=== PATIENT | female | born 1950 | race Caucasian/White ===

== ENCOUNTER → 2016-07-02 | Outpatient (CLI) | payer BC ==
[2016-07-02 13:37] LABS: GLUCOSE 107 mg/dl (70-99)
[2016-07-02 13:51] LABS: CHOLESTEROL 252 mg/dl (0-200); CHOLESTEROL/HDL RATIO 4.8; HDL CHOLESTEROL 53 mg/dl; TRIGLYCERIDES 141 mg/dl (0-150); VERY LOW DENSITY LIPOPROT CALC 28 mg/dl
[2016-07-02 14:04] LABS: ESTIMATED AVERAGE GLUCOSE 126 mg/dl; HA1C FLAG Normal (Normal)
== END | disposition home or self-care (01) ==
LOC: C.LABSPEC 13:01
PROVIDERS: ATTEND Internal Medicine
DX: R73.9 Hyperglycemia, unspecified (principal); E78.5 Hyperlipidemia, unspecified; E03.9 Hypothyroidism, unspecified

== ENCOUNTER → 2016-07-15 | Outpatient (CLI) | payer BC ==
--- NOTE | 2016-07-15 13:45 | MAMMOGRAPHY REPORT ---
BILATERAL DIGITAL SCREENING MAMMOGRAM WITH CAD: 07/15/2016 CLINICAL HISTORY: Routine screening. Patient has no complaints. TECHNIQUE: Current study was also evaluated with a Computer Aided Detection (CAD) system. Bilatera l CC and MLO views were obtained. COMPARISON: Comparison is made to exams dated: 07/14/2015 mammogram, 07/11/2013 mammogram, 07/10/2012 mammogram, 07/05/2011 mammogram, and 07/09/2010 mammogram - [facility]. BREAST COMPOSITION: There are scattered areas of fibroglandular density in both breasts. FINDINGS: No suspicious masses, calcifications, or areas of architectural distortion are noted in e ither breast. There has been no significant interval change compared to prior exams. Bilateral jeremy gn-appearing calcifications are not significantly changed. Small benign-appearing masses in the lef t breast are stable compared to multiple prior exams including the 2011 and 2010 exams. IMPRESSION: ACR BI-RADS CATEGORY 2: BENIGN There is no mammographic evidence of malignancy. A 1 year screening mammogram is recommended. The p atient will receive written notification of the results. Approximately 10% of breast cancers are not detected with mammography. A negative mammographic repor t should not delay biopsy if a clinically suggestive mass is present. Giovanna Briceno M.D. ah/:07/15/2016 10:59:[address] Magistrate: Merna THOMASON(Edward)(M), [facility] letter sent: Normal 1/2 BI-RADS Code: ACR BI-RADS Category 2: Benign
== END | disposition home or self-care (01) ==
LOC: C.MAMM 08:55
PROVIDERS: ATTEND Obstetrics & Gynecology
DX: Z12.31 Encounter for screening mammogram for malignant neoplasm of breast (principal)

== ENCOUNTER → 2016-07-26 | Outpatient (CLI) | payer BC | END | disposition home or self-care (01) | LOC: C.LABSPEC 12:46 | PROVIDERS: ATTEND Internal Medicine | DX: Z12.11 Encounter for screening for malignant neoplasm of colon (principal) ==

== ENCOUNTER → 2016-09-02 | Outpatient (CLI) | payer BC ==
[2016-09-02 15:48] LABS: BASO % 0.4 %; BASO ABS # 0.05 K/uL (0-0.2); COMPLETE YES; EOS % 3.3 %; IG% 0.3 %; LYMPH % 22.4 %; LYMPH ABS # 2.61 K/uL (1.2-3.4); MEAN CELL VOLUME 93.7 fL (80-100); MEAN CORPUSCULAR HEMOGLOBIN 31.6 pg (25-34); MEAN CORPUSCULAR HGB CONC 33.7 g/dl (32-36); MEAN PLATELET VOLUME 9.6 fL (7.4-10.4); MONO % 7.8 %; NEUT % 65.8 %; PLATELET COUNT 280 K/uL (130-400); RED BLOOD COUNT 4.59 M/uL (4.2-5.4); WHITE BLOOD COUNT 11.67 K/uL (4.8-10.8)
[2016-09-02 15:56] LABS: ALT/SGPT 34 U/L (12-78); BLOOD UREA NITROGEN 13 mg/dl (7-18); BUN/CREATININE RATIO 12.8 (10-20); CALCIUM 9.1 mg/dl (8.5-10.1); CARBON DIOXIDE 29 mmol/L (21-32); CHLORIDE 103 mmol/L (98-107); GLUCOSE 99 mg/dl (70-99); POTASSIUM 3.5 mmol/L (3.5-5.1); SODIUM 141 mmol/L (136-145)
[2016-09-02 16:12] LABS: ALKALINE PHOSPHATASE 97 U/L (45-117); AST/SGOT 20 U/L (15-37)
[2016-09-07 21:38] LABS: ENDOMYSIAL IGA AB TC 15064 Negative (Negative)
== END | disposition home or self-care (01) ==
LOC: C.LABSPEC 15:04
PROVIDERS: ATTEND Internal Medicine
DX: T78.3XXA Angioneurotic edema, initial encounter (principal); K90.0 Celiac disease; X58.XXXA Exposure to other specified factors, initial encounter

== ENCOUNTER → 2016-09-17 | Outpatient (CLI) | payer BC ==
[2016-09-23 00:58] LABS: ANTI-CENTROMERE AB <1.0 NEG AI (<1.0 NEG); ANTI-SS-A <1.0 NEG AI (<1.0 NEG); ANTI-SS-B <1.0 NEG AI (<1.0 NEG); C1 ESTERASE INHIB FUNC >100 % (>=68); C1 ESTERASE INHIB TC298 37 mg/dL (21-39); DNA ds CRITHIDIA NEGATIVE (NEGATIVE); GAMMA GLOBULIN 0.9 G/DL (0.8-1.7); MICROSOMAL AB 81 IU/ML (<9); Sm Antibody <1.0 NEG AI (<1.0 NEG); TOTAL PROTEIN 6.9 G/DL (6.2-8.3)
== END | disposition home or self-care (01) ==
LOC: C.LAB1850 09:00
PROVIDERS: ATTEND Internal Medicine Pulmonary Disease
DX: K90.0 Celiac disease (principal); L50.9 Urticaria, unspecified; E03.9 Hypothyroidism, unspecified

== ENCOUNTER → 2016-10-08 | Outpatient (CLI) | payer BC ==
[2016-10-08 10:23] LABS: BASO % 0.2 %; BASO ABS # 0.02 K/uL (0-0.2); COMPLETE YES; EOS % 0.4 %; HEMATOCRIT 41.9 % (37-47); IG% 0.6 %; LYMPH % 7.5 %; LYMPH ABS # 0.81 K/uL (1.2-3.4); MEAN CELL VOLUME 93.9 fL (80-100); MEAN CORPUSCULAR HEMOGLOBIN 29.8 pg (25-34); MEAN CORPUSCULAR HGB CONC 31.7 g/dl (32-36); MEAN PLATELET VOLUME 9.3 fL (7.4-10.4); MONO % 7.3 %; PLATELET COUNT 262 K/uL (130-400); RED BLOOD COUNT 4.46 M/uL (4.2-5.4)
[2016-10-08 10:33] LABS: INR 0.9 (0.9-1.1); PARTIAL THROMBOPLASTIN RATIO 0.9; PROTHROMBIN TIME (PATIENT) 10.1 SECONDS (9.0-12.0)
--- NOTE | 2016-10-08 10:36 | DIAGNOSTIC IMAGING REPORT ---
CHEST 2 VIEWS ROUTINE CLINICAL HISTORY: Cough. COMPARISON STUDY: No previous studies for comparison. FINDINGS: Lung volumes are normal. There is no pneumothorax or pleural effusion. There is no consolidation to suggest pneumonia. Opacity along the left heart border likely reflects epicardial fat pad. Cardiac size is mildly increased. There is no evidence of pulmonary edema. IMPRESSION: 1. No acute cardiopulmonary findings. 2. Mild cardiomegaly. Electronically signed by: Emmanuel Pool M.D. 10/08/2016 10:35 AM Dictated Date/Time: 10/08/2016 10:33 AM
== END | disposition home or self-care (01) ==
LOC: C.RAD1850 09:30
PROVIDERS: ATTEND Physician Assistant Medical
DX: R05 Cough (principal); R23.3 Spontaneous ecchymoses; I51.7 Cardiomegaly

== ENCOUNTER → 2016-12-07 | Outpatient (CLI) | payer BC ==
[2016-12-07 13:55] LABS: BASO % 0.6 %; BASO ABS # 0.04 K/uL (0-0.2); COMPLETE YES; EOS % 3.3 %; IG% 0.2 %; LYMPH ABS # 1.83 K/uL (1.2-3.4); MEAN CELL VOLUME 90.3 fL (80-100); MEAN CORPUSCULAR HEMOGLOBIN 29.2 pg (25-34); MEAN CORPUSCULAR HGB CONC 32.4 g/dl (32-36); MEAN PLATELET VOLUME 9.6 fL (7.4-10.4); MONO % 7.1 %; NEUT % 59.8 %; PLATELET COUNT 276 K/uL (130-400); RED BLOOD COUNT 4.65 M/uL (4.2-5.4)
[2016-12-07 14:02] LABS: URINE APPEARANCE CLEAR (CLEAR); URINE BILIRUBIN NEG (NEG); URINE COLOR YELLOW; URINE NITRITE NEG (NEG); URINE SPECIFIC GRAVITY 1.009 (1.000-1.030); UROBILINOGEN NEG (NEG)
[2016-12-07 14:07] LABS: ALT/SGPT 27 U/L (12-78); BLOOD UREA NITROGEN 14 mg/dl (7-18); BUN/CREATININE RATIO 15.1 (10-20); CALCIUM 9.4 mg/dl (8.5-10.1); CARBON DIOXIDE 27 mmol/L (21-32); CHLORIDE 105 mmol/L (98-107); CREATININE 0.92 mg/dl (0.60-1.20); GLUCOSE 109 mg/dl (70-99); SODIUM 139 mmol/L (136-145)
[2016-12-07 14:14] LABS: MANUAL MICROSCOPIC REQUIRED? NO; REVIEW REQ? NO
[2016-12-07 14:17] LABS: ALKALINE PHOSPHATASE 72 U/L (45-117); AST/SGOT 26 U/L (15-37); THYROID STIMULATING HORMONE 0.404 uIu/ml (0.300-4.500)
== END | disposition home or self-care (01) ==
LOC: C.LABSPEC 12:28
PROVIDERS: ATTEND Internal Medicine
DX: R60.0 Localized edema (principal); K90.0 Celiac disease; T78.3XXA Angioneurotic edema, initial encounter; X58.XXXA Exposure to other specified factors, initial encounter

== ENCOUNTER → 2016-12-07 | Outpatient (CLI) | payer BC ==
--- NOTE | 2016-12-07 11:47 | DIAGNOSTIC IMAGING REPORT ---
ULTRASOUND BILATERAL LOWER EXTREMITY VENOUS CLINICAL HISTORY: Leg pain and swelling. COMPARISON STUDY: No priors. TECHNIQUE: Real-time, grayscale, and color Doppler sonography of the deep veins of the right and left lower extremity was performed from the inguinal crease to the calf. Compression and augmentation were utilized. FINDINGS: There is no sonographic evidence of deep venous thrombosis identified in the right or left lower extremity. The common femoral, superficial femoral, and popliteal veins are patent and normally compressible bilaterally. The greater saphenous vein and the profunda femoris vein at the junction with the common femoral vein are clear in both legs. The visualized calf veins are patent bilaterally. IMPRESSION: There is no sonographic evidence of deep venous thrombosis identified in the right or left lower extremity. Electronically signed by: [place] M.D. 12/07/2016 11:46 AM Dictated Date/Time: 12/07/2016 11:45 AM
== END | disposition home or self-care (01) ==
LOC: C.ULTR 10:47
PROVIDERS: ATTEND Internal Medicine
DX: M79.605 Pain in left leg (principal); M79.604 Pain in right leg; R60.0 Localized edema; K90.0 Celiac disease; T78.3XXA Angioneurotic edema, initial encounter; X58.XXXA Exposure to other specified factors, initial encounter

== ENCOUNTER → 2017-02-02 | Outpatient (CLI) | payer BC ==
[2017-02-04 15:02] LABS: WHEAT CLASS 0; WHEAT IGE <0.10 KU/L
== END | disposition home or self-care (01) ==
LOC: C.LAB1850 13:55
PROVIDERS: ATTEND Internal Medicine Pulmonary Disease
DX: T78.3XXA Angioneurotic edema, initial encounter (principal); X58.XXXA Exposure to other specified factors, initial encounter

== ENCOUNTER → 2017-06-28 | Outpatient (CLI) | payer BC | END | disposition home or self-care (01) | LOC: C.LABSPEC 12:28 | PROVIDERS: ATTEND Internal Medicine | DX: N39.0 Urinary tract infection, site not specified (principal) ==

== ENCOUNTER → 2017-07-01 | Outpatient (CLI) | payer BC ==
[2017-07-01 13:56] LABS: BASO % 0.5 %; BASO ABS # 0.03 K/uL (0-0.2); EOS % 4.7 %; EOS ABS # 0.28 K/uL (0-0.5); HEMATOCRIT 40.1 % (37-47); HEMOGLOBIN 13.6 g/dL (12.0-16.0); IG# 0.01 K/uL (0.00-0.02); LYMPH % 30.2 %; MEAN CELL VOLUME 104.4 fL (80-100); MEAN CORPUSCULAR HEMOGLOBIN 35.4 pg (25-34); MEAN CORPUSCULAR HGB CONC 33.9 g/dl (32-36); MEAN PLATELET VOLUME 9.9 fL (7.4-10.4); MONO ABS # 0.36 K/uL (0.11-0.59); NEUT % 58.4 %; NEUT ABS # 3.48 K/uL (1.4-6.5); PLATELET COUNT 261 K/uL (130-400); RED CELL DISTRIBUTION WIDTH CV 14.6 % (11.5-14.5); RED CELL DISTRIBUTION WIDTH SD 55.3 fL (36.4-46.3); WHITE BLOOD COUNT 5.96 K/uL (4.8-10.8)
[2017-07-01 14:29] LABS: ALBUMIN 3.9 gm/dl (3.4-5.0); AST/SGOT 27 U/L (15-37); BLOOD UREA NITROGEN 13 mg/dl (7-18); CALCIUM 9.1 mg/dl (8.5-10.1); CARBON DIOXIDE 28 mmol/L (21-32); CHOLESTEROL 232 mg/dl (0-200); CREATININE 1.04 mg/dl (0.60-1.20); GLUCOSE 109 mg/dl (70-99); POTASSIUM 3.8 mmol/L (3.5-5.1); SODIUM 139 mmol/L (136-145)
[2017-07-01 14:37] LABS: ALKALINE PHOSPHATASE 88 U/L (45-117); ALT/SGPT 34 U/L (12-78); LDL CHOLESTEROL (DIRECT) 169 mg/dl; TOTAL PROTEIN 7.7 gm/dl (6.4-8.2)
== END | disposition home or self-care (01) ==
LOC: C.LABSPEC 13:16
PROVIDERS: ATTEND Internal Medicine
DX: K90.0 Celiac disease (principal); E03.9 Hypothyroidism, unspecified; E78.5 Hyperlipidemia, unspecified

== ENCOUNTER → 2017-07-18 | Outpatient (CLI) | payer BC ==
--- NOTE | 2017-07-19 15:25 | MAMMOGRAPHY REPORT ---
BILATERAL DIGITAL SCREENING MAMMOGRAM TOMOSYNTHESIS WITH CAD: 07/18/2017 CLINICAL HISTORY: Routine screening. Patient has no complaints. TECHNIQUE: Breast tomosynthesis in addition to standard 2D mammography was performed. Current study was also evaluated with a Computer Aided Detection (CAD) system. COMPARISON: Comparison is made to exams dated: 07/15/2016 mammogram, 07/14/2015 mammogram, 07/12/2014 m ammogram, 07/11/2013 mammogram, 07/10/2012 mammogram, and 07/05/2011 mammogram - [facility] nter. BREAST COMPOSITION: There are scattered areas of fibroglandular density in both breasts. FINDINGS: There is stable nodularity in the left breast. No suspicious mass, architectural distortio n or cluster of microcalcifications is seen. IMPRESSION: ACR BI-RADS CATEGORY 1: NEGATIVE There is no mammographic evidence of malignancy. A 1 year screening mammogram is recommended. The pa tient will receive written notification of the results. Approximately 10% of breast cancers are not detected with mammography. A negative mammographic report should not delay biopsy if a clinically suggestive mass is present. Felisha Munoz M.D. ay/:07/18/2017 15:55:38 Varnish Maker: Marine THOMASON(R)(Catherine), [facility] letter sent: Normal 1/2 BI-RADS Code: ACR BI-RADS Category 1: Negative
== END | disposition home or self-care (01) ==
LOC: C.MAMM 09:02
PROVIDERS: ATTEND Obstetrics & Gynecology
DX: Z12.31 Encounter for screening mammogram for malignant neoplasm of breast (principal)

== ENCOUNTER → 2017-08-19 | Outpatient (CLI) | payer BC | END | disposition home or self-care (01) | LOC: C.LABSPEC 13:37 | PROVIDERS: ATTEND Obstetrics & Gynecology | DX: N76.2 Acute vulvitis (principal) ==

== ENCOUNTER → 2017-12-14 | Outpatient (CLI) | payer BC ==
[~2017-12-14] MED LIST: CYNI1000 IM; IMD/2 PO; LEVO112T2 PO; LEVO125T5 PO
--- NOTE | 2017-12-14 10:06 | DIAGNOSTIC IMAGING REPORT ---
CHEST 2 VIEWS ROUTINE HISTORY: Short of breath. COMPARISON: Chest 10/08/2016. FINDINGS: The lungs are clear. Cardiac silhouette is normal in size. No pleural effusions. No pneumothorax. IMPRESSION: No acute process. Electronically signed by: Gabriel Lu M.D. 12/14/2017 10:05 AM Dictated Date/Time: 12/14/2017 10:03 AM
--- NOTE | 2017-12-14 14:31 | EXERCISE STRESS ECHO ---
*NOTICE TO RECEIVING [employer] This information is strictly Confidential and protected under [place] law. [place] law prohibits you from making any further disclosure of this information unless further disclosure is expressly permitted by the written consent of the person to whom it pertains or is authorized by law. A general authorization for the release of medical or other information is not sufficient for this purpose. Hospital accepts no responsibility if the information is made available to any other person, INCLUDING THE PATIENT. Interpretation Summary * Name: WAN HANNAH Study Date: 12/14/2017 09:24 AM BP: 148/77 mmHg * Patient Location: [facility] HR: 81 * : 1950 (M/d/yyyy) Gender: Female Height: 63 in * Age: 67 yrs Ethnicity: CA Weight: 185 lb * Ordering Physician: Peña Mohamud * Referring Physician: Peña Mohamud * Performed By: Tessa Paniagua RCS * * Reason For Study: MORELOS * BSA: 1.9 m2 * -- Conclusions -- * Left ventricular systolic function is normal. * Diastolic dysfunction, Grade II, consistent with elevated left atrial pressure. * Right ventricular systolic pressure is elevated at 30-40mmHg. * Poor exercise tolerance with limiting dyspnea at peak exertion * Ischemic EKG changes without inducible wall motion abnormalities suggests the absence of ischemia although the sensitivity of the test may be compromised by its short duration. Procedure Details * ECHOEX, CPT #[id number] * ECHO COLOR FLOW, CPT #[id number] * ECHO DOPPLER, CPT #[id number] Left Ventricular Findings with Stress * Poor exercise tolerance with limiting dyspnea at peak exertion Ischemic EKG changes without inducible wall motion abnormalities suggests the absence of ischemia although the sensitivity of the test may be compromised by its short duration. Left Ventricle * The left ventricle is normal in size. * There is normal left ventricular wall thickness. * Left ventricular systolic function is normal. * Ejection Fraction = 55-60%. * Diastolic dysfunction, Grade II, consistent with elevated left atrial pressure. * The left ventricular wall motion is normal at rest. Right Ventricle * The right ventricle is normal in size and function. Atria * The left atrial size is normal. * Right atrial size is normal. Mitral Valve * The mitral valve is grossly normal. * Significant mitral regurgitation is absent. Tricuspid Valve * The tricuspid valve is not well visualized, but is grossly normal. * Right ventricular systolic pressure is elevated at 30-40mmHg. Aortic Valve * The aortic valve is normal in structure and function. * No hemodynamically significant valvular aortic stenosis. * There is no significant aortic regurgitation. Pulmonic Valve * The pulmonic valve is not well seen, but is grossly normal. * Trace pulmonic valvular regurgitation. Great Vessels * The aortic root is normal size. Pericardium * There is no pericardial effusion. Stress Parameters * Normal baseline electrocardiogram. * 1 millimeter upsloping depression at peak exertion * The stress portion of this study was personally supervised by the undersigned interpreting physician. * Rest heart rate was '81' BPM. * Rest blood pressure was '148/77' * Maximum heart rate achieved was 151 bpm. * Maximum heart rate was 99 % of maximum age-predicted heart rate. * Maximum blood pressure was '166/55' * Total exercise time was '2:59' * Maximum exercise MET level achieved was '4.6' METS * Maximum treadmill speed was '1.7' miles per hour. * Maximum treadmill elevation was '10'% grade. * Exercise was terminated due to 'Dyspnea' * Normal blood pressure response to exercise. Left Ventricular Findings with Stress * Baseline EKG was normal There was [address] depression at peak exertion which resolved quickly in recovery. Baseline wall motion and function was normal At peak exertion there appeared to be normal augmentation of all segments without development of regional wall motion abnormalities Poor exercise tolerance Normal blood pressure response to exercise Salter treadmill score: -2 (moderate risk) MMode 2D Measurements and Calculations IVSd 0.93 cm IVSs 1.3 cm LVIDd 4.4 cm LVIDs 2.9 cm LVPWd 1.0 cm LVPWs 1.4 cm IVS/LVPW 0.91 FS 33.2 % EDV(Teich) 87.8 ml ESV(Teich) 33.4 ml EF(Teich) 62.0 % EDV(cubed) 85.3 ml ESV(cubed) 25.5 ml EF(cubed) 70.1 % % IVS thick 37.3 % % LVPW thick 39.5 % LV mass(C)d 143.4 grams LV mass(C)dI 76.6 grams/m\S\2 LV mass(C)s 129.4 grams LV mass(C)sI 69.2 grams/m\S\2 SV(Teich) 54.4 ml SI(Teich) 29.1 ml/m\S\2 SV(cubed) 59.8 ml SI(cubed) 32.0 ml/m\S\2 Ao root diam 3.1 cm Ao root area 7.7 cm\S\2 ACS 1.2 cm LA dimension 3.8 cm asc Aorta Diam 3.4 cm LA/Ao 1.2 EDV(MOD-sp4) 78.0 ml ESV(MOD-sp4) 33.0 ml EF(MOD-sp4) 57.7 % EDV(MOD-sp2) 96.0 ml ESV(MOD-sp2) 29.0 ml EF(MOD-sp2) 69.8 % SV(MOD-sp4) 45.0 ml SI(MOD-sp4) 24.1 ml/m\S\2 SV(MOD-sp2) 67.0 ml SI(MOD-sp2) 35.8 ml/m\S\2 Doppler Measurements and Calculations MV E max sarah 117.2 cm/sec MV A max sarah 95.9 cm/sec MV E/A 1.2 MV P1/2t max sarah 121.7 cm/sec MV P1/2t 77.2 msec MVA(P1/2t) 2.9 cm\S\2 MV dec slope 461.7 cm/sec\S\2 MV dec time 0.19 sec Ao V2 max 160.7 cm/sec Ao max PG 10.3 mmHg Ao max PG (full) 3.3 mmHg LV V1 max PG 7.0 mmHg LV V1 max 132.1 cm/sec PA V2 max 102.1 cm/sec PA max PG 4.2 mmHg PI max sarah 230.8 cm/sec PI max PG 21.3 mmHg PI dec slope 315.2 cm/sec\S\2 PI P1/2t 214.5 msec TR max sarah 257.1 cm/sec
== END | disposition home or self-care (01) ==
LOC: C.CPL 08:57
PROVIDERS: ATTEND Internal Medicine
DX: R06.02 Shortness of breath (principal)

== ENCOUNTER 2017-12-20 14:04 | Inpatient (IN) | payer BC, OTHER ==
[2017-12-20] VITALS (9 sets, daily range): BP systolic 127–150; BP diastolic 75–78; PULSE 81–91; TEMP 36.8–37.5; O2SAT 95–100; Ht 160 cm; Wt 83.0 kg
[~2017-12-20] VITALS: Ht 160 cm; Wt 83.0 kg
--- NOTE | 2017-12-20 14:24 | EMERGENCY ROOM VISIT NOTE ---
History Report prepared by Lucia: Manpreet Patino Under the Supervision of: Dr. Baldev Moya M.D. First contact with patient: 14:10 Chief Complaint: SHORTNESS OF BREATH Stated Complaint: SHORTNESS OF BREATH,CHEST PAINS,BACK PAIN History of Present Illness The patient is a 67 year old white female with a past medical history of angioedema and celiac disease who presents to the Emergency Room with complaints of intermittent shortness of breath that she has been experiencing for the past 6 weeks. The patient states that her shortness of breath is worsened/precipitated by exertion such as walking up hill or up a flight of stairs. She notes that her symptoms are improved by laying flat. The patient also complains of intermittent "twinges" in her chest as well as a "heaviness" between her shoulder blades. She denies any other cough, fevers/chills, or lower extremity edema. She has not noticed any hematochezia or hematemesis. The patient had a cardiac stress test 6 days ago. Source of History: patient Onset: 6 weeks ago Position: chest (SOB) Quality: other (SOB) Timing: intermittent Associated Symptoms: + chest pain ("twinges"), + back pain ("heaviness" in shoulder blades), No fevers, No chills Review of Systems See HPI for pertinent positives and negatives. A total of ten systems were reviewed and were otherwise negative. Past Medical & Surgical Medical Problems: (1) Symptomatic anemia Hx of angioedema and Celiac disease. Family History Omitted secondary to age. Social History Smoking Status: Never Smoker Drug Use: none Marital Status: Housing Status: lives with family Current/Historical Medications Scheduled Levothyroxine Sodium (Synthroid), 56 MCG PO MWF Levothyroxine Sodium (Levothyroxine Sodium), 125 MCG PO 4XWK Loperamide Hcl (Imodium), 4 MG PO prn Allergies Coded Allergies: Sulfa Drugs (Verified Allergy, Unknown, FEVER, ENLARGED LIVER, 12/20/17) Uncoded Allergies: *TRIMETHOPRIM/SULFAMETHOXAZOLE (Generic Allergy) (Allergy, Severe, Y, ) HIGH FEVER & ENLARGED LIVER IV DYE (Allergy, Unknown, UNKNOWN, 12/20/17) Physical Exam Vital Signs Date Time Temp Pulse Resp B/P (MAP) Pulse Ox O2 Delivery O2 Flow Rate FiO2 7/24/18 15:34 87 23 12/20/17 15:33 100 Room Air 12/20/17 15:04 91 25 96 12/20/17 14:34 87 17 98 12/20/17 14:30 89 12/20/17 14:27 100 Room Air 12/20/17 14:24 149/78 12/20/17 14:07 37.1 99 20 100 Room Air Physical Exam GENERAL: Awake, alert, well-appearing, NAD HENT: Normocephalic, atraumatic. EYES: Normal conjunctiva. Sclera non-icteric. PERRL. No anisocoria. NECK: Supple. No nuchal rigidity. FROM. RESPIRATORY: CTAB, no rhonchi, wheezing, crackles CARDIAC: RRR, no MRG ABDOMEN: Soft, NTND, BS+ MSK: No chest wall TTP, no LE edema. No calf tenderness. NEURO: GCS 15, CN 2-12 intact, moves all 4s on command SKIN: No rash or jaundice noted. Medical Decision & Procedures ER Provider Diagnostic Interpretation: Radiology results as stated below per my review and radiologist interpretation: CHEST ONE VIEW PORTABLE CLINICAL HISTORY: EVALUATE RESPIRATORY DISTRESS.DYSPNEA dyspnea COMPARISON STUDY: 12/14/2017 FINDINGS: The bones soft tissues and hemidiaphragms are normal. The cardiomediastinal silhouette is normal. The lungs are clear. The pulmonary vasculature is normal. IMPRESSION: Negative chest. The above report was generated using voice recognition software. It may contain grammatical, syntax or spelling errors. Electronically signed by: Brad Sprague M.D. 12/20/2017 2:54 PM Dictated Date/Time: 12/20/2017 2:54 PM Laboratory Results 12/20/17 14:30 Red Blood Count 1.77, Mean Corpuscular Volume 110.2, Mean Corpuscular Hemoglobin 38.4, Mean Corpuscular Hemoglobin Concent 34.9, Neutrophils (%) (Auto ) 28.2, Lymphocytes (%) (Auto) 63.3, Monocytes (%) (Auto) 1.2, Eosinophils (%) ( Auto) 6.5, Basophils (%) (Auto) 0.4, Neutrophils # (Auto) 0.70, Lymphocytes # ( Auto) 1.57, Monocytes # (Auto) 0.03, Eosinophils # (Auto) 0.16, Basophils # ( Auto) 0.01 7/24/18 14:30 Test 12/20/17 14:30 12/20/17 14:36 White Blood Count 2.37 K/uL (4.8-10.8) Red Blood Count 1.77 M/uL (4.2-5.4) Hemoglobin 6.8 g/dL (12.0-16.0) Hematocrit 19.5 % (37-47) Mean Corpuscular Volume 110.2 fL (80-100) Mean Corpuscular Hemoglobin 38.4 pg (25-34) Mean Corpuscular Hemoglobin Concent 34.9 g/dl (32-36) Platelet Count 70 K/uL (130-400) Neutrophils (%) (Auto) 28.2 % Lymphocytes (%) (Auto) 63.3 % Monocytes (%) (Auto) 1.2 % Eosinophils (%) (Auto) 6.5 % Basophils (%) (Auto) 0.4 % Neutrophils # (Auto) 0.70 K/uL (1.4-6.5) Lymphocytes # (Auto) 1.57 K/uL (1.2-3.4) Monocytes # (Auto) 0.03 K/uL (0.11-0.59) Eosinophils # (Auto) 0.16 K/uL (0-0.5) Basophils # (Auto) 0.01 K/uL (0-0.2) RDW Standard Deviation 72.0 fL (36.4-46.3) RDW Coefficient of Variation 19.7 % (11.5-14.5) Immature Granulocyte % (Auto) 0.4 % Immature Granulocyte # (Auto) 0.01 K/uL (0.00-0.02) Nucleated RBC Absolute Count (auto) 0.05 K/uL (0-0) Nucleated Red Blood Cells % 2.2 % Platelet Estimate DECREASED Giant Platelets 2+ Macrocytosis PRESENT Tear Drop Cells 1+ Ovalocytes 1+ Schistocytes 1+ Prothrombin Time 11.4 SECONDS (9.0-12.0) Prothromb Time International Ratio 1.1 (0.9-1.1) Activated Partial Thromboplast Time 21.3 SECONDS (21.0-31.0) Partial Thromboplastin Ratio 0.8 Venous Blood pH 7.43 (7.36-7.41) Venous Blood Partial Pressure CO2 48 mmHg (38.0-50.0) Venous Blood Partial Pressure O2 26 mmHg Venous Blood HCO3 30 mmol/L Venous Blood Oxygen Saturation < 60.0 % Venous Blood Base Excess 5.4 mEq/L Anion Gap 6.0 mmol/L (3-11) Est Creatinine Clear Calc Drug Dose 68.2 ml/min Estimated GFR () 86.5 Estimated GFR (Non- 74.6 BUN/Creatinine Ratio 10.4 (10-20) Calcium Level 8.4 mg/dl (8.5-10.1) Total Bilirubin 2.5 mg/dl (0.2-1) Aspartate Amino Transf (AST/SGOT) 218 U/L (15-37) Alanine Aminotransferase (ALT/SGPT) 77 U/L (12-78) Alkaline Phosphatase 50 U/L (45-117) Troponin I < 0.015 ng/ml (0-0.045) Pro-B-Type Natriuretic Peptide 124 pg/ml (0-900) Total Protein 6.9 gm/dl (6.4-8.2) Albumin 4.2 gm/dl (3.4-5.0) Globulin 2.6 gm/dl (2.5-4.0) Albumin/Globulin Ratio 1.6 (0.9-2) Chemistry Specimen Hemolysis Hepatitis C Antibody Screen NEG (NEG) Laboratory results reviewed by me Medications Administered Medications (Trade) Dose Ordered Sig/Negro Route Start Time Stop Time Status Last Admin Dose Admin Pantoprazole Sodium (Protonix IV Bolus/Drip) 1 ea NOW STAT IV 12/20/17 15:20 12/20/17 15:22 DC 12/20/17 16:12 1 EA ECG Per My Interpretation Indication: SOB/dyspnea, syncope Rate (beats per minute): 89 Rhythm: normal sinus Findings: other (No STS or TWI, normal axis, normal intervals. ) ED Course 1415: The patient was evaluated in room A12B. A complete history and physical exam was performed. 1615: I discussed the case with Dr. Kareen Gruber -- [facility] Hospitalist. She will evaluate for further treatment. Medical Decision The patient is a 67 year old white female with a past medical history of angioedema and celiac disease who presents to the Emergency Room with complaints of intermittent shortness of breath that she has been experiencing for the past 6 weeks. Nursing notes reviewed. Ancillary studies and prior records reviewed. Differential diagnosis: Etiologies such as infections, reactive airway disease, pneumonia, pneumothorax , COPD, CHF, cardiac ischemia, pulmonary embolism, musculoskeletal, gastrointestinal, as well as others were entertained. Patient was seen and evaluated the bedside. The patient was complaining of about 6 weeks of exertional dyspnea. Patient states on level ground she can walk about 100 feet but is certainly much shorter if having to walk on an incline. Patient did have a recent echocardiogram as well as stress test. Patient stress test shows that the patient was able to reach her maximum target heart rate however there was no interpretation of the test. Patient did have a recent echo completed on December 14 ECHO: * -- Conclusions -- * Left ventricular systolic function is normal. * Diastolic dysfunction, Grade II, consistent with elevated left atrial pressure. * Right ventricular systolic pressure is elevated at 30-40mmHg. * Poor exercise tolerance with limiting dyspnea at peak exertion * Ischemic EKG changes without inducible wall motion abnormalities suggests the absence of ischemia although the sensitivity of the test may be compromised by its short duration. Patient's blood work showed that the patient did have some pancytopenia. Patient does have an elevated MCV. Patient did have a rectal exam that was negative. The patient had been initially started on a PPI and was ordered 2 units for transfusion. VBG is normal. Patient did have mild elevation in total bilirubin. It is not given in fractions of indirect versus direct. I did discuss with the hospitalist but with another could be some consumptive coagulopathy. The patient was consented for blood. I did speak with the on-call hospitalist who agreed to further evaluate treat the patient. I did order repletion of electrolytes and the patient also did have some tickborne illness studies also ordered. Patient was admitted. Medication Reconcilliation Current Medication List: was personally reviewed by me Blood Pressure Screening Patient's blood pressure: Elevated blood pressure Referred to hospitalist. Consults Time Called: 1611 Consulting Physician: Dr. Kareen Dunn Hospitalist Returned Call: 1615 I discussed the case with Dr. Kareen Gruber -- [facility]. She will evaluate for further treatment. Impression Primary Impression: Pancytopenia Additional Impression: Anemia Critical Care I have personally spent greater than 35 minutes of critical care time in the direct management of this patient. This includes bedside care, interpretation of diagnostic studies, and testing, discussion with consultants, patient, and family members, and other required patient management activities. This 35 minutes is in excess of all separately billable procedures. Scribe Attestation The scribe's documentation has been prepared under my direction and personally reviewed by me in its entirety. I confirm that the note above accurately reflects all work, treatment, procedures, and medical decision making performed by me. Departure Information Dispostion Being Evaluated By Hospitalist Referrals Peña Mohamud M.D. (PCP) Patient Instructions My [facility] Problem Qualifiers Additional Impression: Anemia Anemia type: unspecified type Qualified Codes: D64.9 - Anemia, unspecified
[2017-12-20 14:51] LABS: INR 1.1 (0.9-1.1); PTT PATIENT 21.3 SECONDS (21.0-31.0)
[2017-12-20 14:56] LABS: HEMATOCRIT 19.5 % (37-47); HEMOGLOBIN 6.8 g/dL (12.0-16.0); MEAN CELL VOLUME 110.2 fL (80-100); MEAN CORPUSCULAR HEMOGLOBIN 38.4 pg (25-34); MEAN CORPUSCULAR HGB CONC 34.9 g/dl (32-36); RED CELL DISTRIBUTION WIDTH CV 19.7 % (11.5-14.5); WHITE BLOOD COUNT 2.37 K/uL (4.8-10.8)
--- NOTE | 2017-12-20 14:56 | DIAGNOSTIC IMAGING REPORT ---
CHEST ONE VIEW PORTABLE CLINICAL HISTORY: EVALUATE RESPIRATORY DISTRESS.DYSPNEA dyspnea COMPARISON STUDY: 12/14/2017 FINDINGS: The bones soft tissues and hemidiaphragms are normal. The cardiomediastinal silhouette is normal. The lungs are clear. The pulmonary vasculature is normal. IMPRESSION: Negative chest. The above report was generated using voice recognition software. It may contain grammatical, syntax or spelling errors. Electronically signed by: Brad Sprague M.D. 12/20/2017 2:54 PM Dictated Date/Time: 12/20/2017 2:54 PM
[2017-12-20] MEDS ORDERED: LEVO112T2 PO (15:01)
[2017-12-20] MEDS ORDERED: IMD/2 PO (15:01)
[2017-12-20] MEDS ORDERED: LEVO125T5 PO (15:02)
[2017-12-20 15:07] LABS: ALBUMIN 4.2 gm/dl (3.4-5.0); ALT/SGPT 77 U/L (12-78); AST/SGOT 218 U/L (15-37); BLOOD UREA NITROGEN 8 mg/dl (7-18); CALCIUM 8.4 mg/dl (8.5-10.1); CARBON DIOXIDE 29 mmol/L (21-32); CREATININE 0.81 mg/dl (0.60-1.20); GLUCOSE 93 mg/dl (70-99); POTASSIUM 3.5 mmol/L (3.5-5.1); SODIUM 140 mmol/L (136-145)
[2017-12-20 15:18] LABS: ALKALINE PHOSPHATASE 50 U/L (45-117); TOTAL PROTEIN 6.9 gm/dl (6.4-8.2)
[2017-12-20 15:19] LABS: NUCLEATED RED BLOOD CELL ABS 0.05 K/uL (0-0); PLATELET COUNT 70 K/uL (130-400)
[2017-12-20 15:20] LABS: BASO % 0.4 %; BASO ABS # 0.01 K/uL (0-0.2); EOS % 6.5 %; EOS ABS # 0.16 K/uL (0-0.5); IG# 0.01 K/uL (0.00-0.02); LYMPH % 63.3 %; LYMPH ABS # 1.57 K/uL (1.2-3.4); MONO % 1.2 %; MONO ABS # 0.03 K/uL (0.11-0.59); NEUT % 28.2 %
--- NOTE | 2017-12-20 16:29 | History and Physical ---
History & Physical Date & Time of Service: Dec 20, 2017 at 16:24 Chief Complaint: Shortness Of Breath,Chest Pains,Back Pain Primary Care Physician: Peña Mohamud M.D. History of Present Illness Source: patient 67 y/o F c/o SOB. Pt has been having SOB with exertion for about the last two months. It started with stairs or inclines, but has progressed to any movement including bending over. No SOB at rest. SOB improves with rest. No prior hx of SOB. She noted a chest tightness today when it happened, but not prior. She has had some tightness between her shoulder blades for the last few weeks. She does have more loose stools right now, but that is usually the case in summer when her diet has more fresh fruit. She has seen her PCP for this issue. She had a stress ECHO last week that was WNL. UTD with colonoscopy, although this was more than 5 yrs ago. No hx of abn. Mammo 06/2016 WNL. She had a vaginal exam this past spring, although she is not sure if it was a PAP or just a cx. No hx of abn PAP. Past Medical/Surgical History Hypothyroid Celiac disease Family History Neg for anemia or requiring transfusion Hx of afib and COPD Social History Smoking Status: Never Smoker Alcohol Use: none Drug Use: none Marital Status: Allergies Coded Allergies: Sulfa Drugs (Verified Allergy, Unknown, FEVER, ENLARGED LIVER, 12/20/17) Uncoded Allergies: *TRIMETHOPRIM/SULFAMETHOXAZOLE (Generic Allergy) (Allergy, Severe, Y, ) HIGH FEVER & ENLARGED LIVER IV DYE (Allergy, Unknown, UNKNOWN, 12/20/17) Home Medications Scheduled Levothyroxine Sodium (Synthroid), 56 MCG PO MWF Levothyroxine Sodium (Levothyroxine Sodium), 125 MCG PO 4XWK Loperamide Hcl (Imodium), 4 MG PO prn Review of Systems Pertinent positives and negatives reviewed in HPI--all others negative Physical Exam Vital Signs Date Time Temp Pulse Resp B/P (MAP) Pulse Ox O2 Delivery O2 Flow Rate FiO2 12/20/17 15:34 87 23 12/20/17 15:33 100 Room Air 12/20/17 15:04 91 25 96 12/20/17 14:34 87 17 98 12/20/17 14:30 89 12/20/17 14:27 100 Room Air 12/20/17 14:24 149/78 12/20/17 14:07 37.1 99 20 100 Room Air General Appearance: WD/WN, no apparent distress Head: normocephalic, atraumatic Eyes: normal inspection, sclerae normal Respiratory/Chest: normal breath sounds, no respiratory distress Cardiovascular: regular rate, rhythm, no edema Abdomen/GI: non tender, soft Extremities/Musculoskelatal: no calf tenderness, no pedal edema Neurologic/Psych: alert, normal mood/affect, oriented x 3 Skin: warm/dry, + pallor Diagnostics Laboratory Results Results Past 24 Hours Test 12/20/17 14:30 12/20/17 14:36 12/20/17 15:50 12/20/17 16:00 Range/Units White Blood Count 2.37 4.8-10.8 K/uL Red Blood Count 1.77 4.2-5.4 M/uL Hemoglobin 6.8 12.0-16.0 g/dL Hematocrit 19.5 37-47 % Mean Corpuscular Volume 110.2 80-100 fL Mean Corpuscular Hemoglobin 38.4 25-34 pg Mean Corpuscular Hemoglobin Concent 34.9 32-36 g/dl Platelet Count 70 130-400 K/uL Neutrophils (%) (Auto) 28.2 % Lymphocytes (%) (Auto) 63.3 % Monocytes (%) (Auto) 1.2 % Eosinophils (%) (Auto) 6.5 % Basophils (%) (Auto) 0.4 % Neutrophils # (Auto) 0.70 1.4-6.5 K/uL Lymphocytes # (Auto) 1.57 1.2-3.4 K/uL Monocytes # (Auto) 0.03 0.11-0.59 K/uL Eosinophils # (Auto) 0.16 0-0.5 K/uL Basophils # (Auto) 0.01 0-0.2 K/uL RDW Standard Deviation 72.0 36.4-46.3 fL RDW Coefficient of Variation 19.7 11.5-14.5 % Immature Granulocyte % (Auto) 0.4 % Immature Granulocyte # (Auto) 0.01 0.00-0.02 K/uL Nucleated RBC Absolute Count (auto) 0.05 0-0 K/uL Nucleated Red Blood Cells % 2.2 % Platelet Estimate DECREASED Giant Platelets 2+ Macrocytosis PRESENT Tear Drop Cells 1+ Ovalocytes 1+ Schistocytes 1+ Prothrombin Time 11.4 9.0-12.0 SECONDS Prothromb Time International Ratio 1.1 0.9-1.1 Activated Partial Thromboplast Time 21.3 21.0-31.0 SECONDS Partial Thromboplastin Ratio 0.8 Venous Blood pH 7.43 7.36-7.41 Venous Blood Partial Pressure CO2 48 38.0-50.0 mmHg Venous Blood Partial Pressure O2 26 mmHg Venous Blood HCO3 30 mmol/L Venous Blood Oxygen Saturation < 60.0 % Venous Blood Base Excess 5.4 mEq/L Sodium Level 140 136-145 mmol/L Potassium Level 3.5 3.5-5.1 mmol/L Chloride Level 105 98-107 mmol/L Carbon Dioxide Level 29 21-32 mmol/L Anion Gap 6.0 3-11 mmol/L Blood Urea Nitrogen 8 7-18 mg/dl Creatinine 0.81 0.60-1.20 mg/dl Est Creatinine Clear Calc Drug Dose 68.2 ml/min Estimated GFR () 86.5 Estimated GFR (Non- 74.6 BUN/Creatinine Ratio 10.4 10-20 Random Glucose 93 70-99 mg/dl Calcium Level 8.4 8.5-10.1 mg/dl Total Bilirubin 2.5 0.2-1 mg/dl Aspartate Amino Transf (AST/SGOT) 218 15-37 U/L Alanine Aminotransferase (ALT/SGPT) 77 12-78 U/L Alkaline Phosphatase 50 45-117 U/L Troponin I < 0.015 0-0.045 ng/ml Pro-B-Type Natriuretic Peptide 124 0-900 pg/ml Total Protein 6.9 6.4-8.2 gm/dl Albumin 4.2 3.4-5.0 gm/dl Globulin 2.6 2.5-4.0 gm/dl Albumin/Globulin Ratio 1.6 0.9-2 Chemistry Specimen Hemolysis CXR normal Impression Assessment and Plan 67 y/o F who was admitted on 12/20 with symptomatic anemia Symptomatic anemia/MORELOS: B12 79 with MCV elevated Folate WNL Rectal heme neg in the ED, denies GI blood loss Lyme panel pending CXR neg Trop neg Recent stress ECHO 12/16/17 was WNL BNP WNL B12 injections daily Heme/onc c/s pending Hypothyroid: continue home meds Other: Full code Reg diet Ambulation for DVT proph given anemia and risk for skin breakdown Advanced Directives Existing Living Will: Yes Existing Power of Accounts Receivable Associate: No Resuscitation Status VTE Prophylaxis Will order VTE Prophylaxis: No Reason for no VTE drug order: Contraindicated Reason no Mechanical VTE Order: Contraindicated Additional Copies To Peña Mohamud M.D.
[2017-12-20] MEDS ORDERED: LOPERAMIDE HCL 2 MG CAP PO PRN (16:30)
[2017-12-20] MEDS ORDERED: ACETAMINOPHEN 325 MG TAB PO PRN (16:30)
[2017-12-20] MEDS ORDERED: MAGNESIUM HYDROXIDE SUSP 30 ML UDC PO PRN (16:30)
[2017-12-20] MEDS ORDERED: ONDANSETRON INJ 2 MG/ML 2 ML VIAL IV PRN (16:30)
[2017-12-20] MEDS ORDERED: PANTOprazole INJ 80 MG in DEXTROSE 5% 100ML IV ONE (16:45)
[2017-12-20] MEDS ORDERED: PANTOprazole INJ 40 MG in DEXTROSE 5% 100ML IV SCH (17:00)
[2017-12-20] MEDS: CYANOCOBALAMIN 1000 MCG/ML VIAL IM SCH (18:57)
[2017-12-21 00:04] VITALS: BP 153/84; PULSE 83; TEMP 36.6; O2SAT 96
[2017-12-21 04:04] VITALS: BP 154/83; PULSE 80; TEMP 37; O2SAT 96
[2017-12-21 05:18] LABS: HEMATOCRIT 25.3 % (37-47); HEMOGLOBIN 8.9 g/dL (12.0-16.0); MEAN CELL VOLUME 101.2 fL (80-100); MEAN CORPUSCULAR HEMOGLOBIN 35.6 pg (25-34); MEAN CORPUSCULAR HGB CONC 35.2 g/dl (32-36); NUCLEATED RED BLOOD CELL ABS 0.06 K/uL (0-0); PLATELET COUNT 48 K/uL (130-400); RED CELL DISTRIBUTION WIDTH CV 23.1 % (11.5-14.5); RED CELL DISTRIBUTION WIDTH SD 82.6 fL (36.4-46.3); WHITE BLOOD COUNT 2.63 K/uL (4.8-10.8)
[2017-12-21] MEDS ORDERED: LEVOTHYROXINE 112 MCG TAB PO SCH (07:00)
[2017-12-21 07:37] VITALS: BP 149/86; PULSE 76; TEMP 37; O2SAT 97
[2017-12-21] MEDS: CYANOCOBALAMIN 1000 MCG/ML VIAL IM SCH (07:44)
--- NOTE | 2017-12-21 08:48 | HEMATOLOGY CONSULTATION ---
DATE OF CONSULTATION: 12/21/2017 REASON FOR CONSULTATION: Severe vitamin B12 deficiency. HISTORY OF PRESENT ILLNESS: Paulina is a very pleasant 67-year-old female patient with history of celiac disease admitted on 12/20/2017 because of subacute onset shortness of breath, exertional dyspnea and fatigue. She actually started to notice imbalance over the past couple of days prior to admission. What actually brought her in to the Emergency Room was chest tightness. It was between her shoulder blades and she was fearful of suffering from an acute myocardial infarction. Upon admission, the patient was found to be profoundly pancytopenic with a hemoglobin of 6.8 g/dL. MCV is markedly elevated at 110.2. Astutely, medical service obtained B12 levels which were found to be profoundly decreased to 79. She has received her initial injection. Paulina was diagnosed with celiac disease back in 2009 and suspected the reason for her deficiency state. PAST MEDICAL HISTORY: Significant for celiac disease and hypothyroidism. MEDICATIONS: Prior to admission levothyroxine 125 mcg p.o. 4 times weekly and 56 mcg alternating the other days. She was using Imodium p.r.n. ALLERGIES: TO SULFA DRUGS AND INTRAVENOUS DYE. FAMILY HISTORY: Father suffered from some sort of blood dyscrasia requiring transfusional support probably MDS. Mother of complications of nonalcoholic steatotic hepatitis. SOCIAL HISTORY: The patient is retired from [employer]. She is . She is a nonsmoker, nondrinker. REVIEW OF SYSTEMS: As per HPI most notably for fatigue, shortness of breath, dyspnea on exertion as well as substernal chest pain. GENERAL: Denies fevers, chills or sweats. She is not anorexic or losing weight. SKIN: No rashes or lesions. No history of dermatosis. HEENT: Negative for headaches, lightheadedness or dizziness. No acute visual hearing deficits. No sinus symptoms, sore throat or dysphagia. LYMPH: No history of lymphoproliferative disease. CARDIAC: No history of coronary artery disease, but she did present with anginal like chest pain. She denies palpitations. PULMONARY: Negative for COPD. No shortness of breath, dyspnea or orthopnea. No cough or hemoptysis. GASTROINTESTINAL: Negative for abdominal pain, nausea, vomiting, diarrhea or constipation, hematochezia or melena stools. GENITOURINARY: No hematuria, dysuria, urinary incontinence. PSYCHIATRIC: Negative for anxiety, depression or psychosis. MUSCULOSKELETAL: Negative for arthralgias or myalgias. No muscle weakness. ENDOCRINE: Positive for hypothyroidism. NEUROLOGICAL: Again, she complained of some mild gait imbalance leading up to admission, but otherwise has no history of seizure, stroke, or migraine headache. HEMATOLOGIC: Positive for pancytopenia and gross B12 deficiency. PHYSICAL EXAMINATION: GENERAL: A very pleasant 67-year-old well-nourished female, in no acute distress. VITAL SIGNS: Temperature 37, pulse 76, respiratory rate 18, blood pressure 149/86. SKIN: Warm, dry, noncyanotic with petechiae, rash or ecchymosis. HEAD: Atraumatic, normocephalic. EYES: PERRLA, EOMI. Sclerae nonicteric. No conjunctival injection. Nares are patent without rhinorrhea or discharge. Throat is clear. Tongue is midline. Mucous membranes moist. NECK: Supple without JVD or thyromegaly. LYMPH: No cervical, supraclavicular, axillary or inguinal palpable nodes. HEART: Regular rate and rhythm. No clicks, rubs, murmurs or gallops. LUNGS: Clear to auscultation bilaterally. ABDOMEN: Soft, nontender, nondistended, without palpable hepatosplenomegaly. EXTREMITIES: No calf tenderness or swelling. No clubbing, cyanosis or edema. NEUROLOGICALLY: She is awake, alert and oriented x3. LABORATORY DATA: Sodium 140, potassium 3.5, chloride 105, carbon dioxide 29, creatinine 0.81, BUN 8, AST 218, total bilirubin 2.5, vitamin B12 of 79. WBC count 2630, hemoglobin 8.9, platelet count 48,000. IMPRESSION: 1. Macrocytic anemia. 2. Pancytopenia. 3. Fatigue. 4. Dyspnea on exertion. PLAN: In summary, Paulina is a very pleasant 67-year-old female patient who presented to [facility] yesterday with symptomatic anemia. She had been struggling with exercise tolerance and subsequently developed chest pain prompting her to seek medical attention. Laboratory evaluation on admission revealed pancytopenia with a macrocytic anemia consistent with B12 deficiency. I suspect the patient's celiac disease has resulted in malabsorption and should be screened further elemental deficiencies particularly iron. Proceed with aggressive vitamin B12 replacement 1000 mcg intramuscularly daily for the next week. I would then administer weekly injections followed by permanent monthly injections. Hematopoiesis will recover and I expect her counts to normalize over the next several weeks. I will be more than happy to continue following Paulina post-discharge. I can be contacted at any time if there are further questions or concerns. Thank you very much for allowing me to participate in the care of this very pleasant patient.
[2017-12-21] MEDS ORDERED: CYNI1000 IM ×2 (09:54)
--- NOTE | 2017-12-21 09:56 | Discharge Instructions ---
Discharge Instructions Date of Service Dec 21, 2017. Admission Reason for Admission: Symptomatic Anemia Discharge Discharge Diagnosis / Problem: Symptomatic anemia, pancytopenia, Vitamin B12 deficiency Discharge Goals Goal(s): Improve function, Improve disease control Activity Recommendations Activity Limitations: resume your previous activity . Instructions / Follow-Up Instructions / Follow-Up Medications: - VITAMIN B12: plan for IM injection daily for one week, then weekly x 4 weeks and then monthly Anemia, macrocytic, as well as low platelets and WBC due to Vitamin B12 deficiency plan for the above treatment follow up with Dr. Liz Lee tomorrow iron levels pending, will call with results, may require oral or IV iron supplementation FOLLOW UP - Dr. Liz Lee in one week Current Hospital Diet Patient's current hospital diet: Regular Diet Discharge Diet Recommended Diet: Regular Diet Pending Studies Studies pending at discharge: yes List of pending studies: iron levels Medical Emergencies . Who to Call and When: Medical Emergencies: If at any time you feel your situation is an emergency, please call 911 immediately. . Non-Emergent Contact Non-Emergency issues call your: Primary Care Provider Call Non-Emergent contact if: you have any medication questions . . "Provider Documentation" section prepared by Bryan Choi. . [place] Drug Monitoring Program Search Results: no issues identified
[2017-12-21 09:58] VITALS: BP 149/86; PULSE 76; TEMP 37; O2SAT 97
--- NOTE | 2017-12-21 15:53 | Discharge Summary ---
Discharge Summary Date of Service Dec 21, 2017. Discharge Summary Admission Date: Dec 20, 2017 at 16:23 Discharge Date: Dec 21, 2017 Discharge Disposition: Home Principal Diagnosis: Symptomatic anemia, macrocytic Problems/Secondary Diagnoses: Pancytopenia Vitamin B12 deficiency Procedures: PRBC transfusion x 2 units Consultations: Hematology Medication Reconciliation New Medications: Cyanocobalamin (Cyanocobalamin) 1,000 Mcg/Ml Inj 1000 MCG IM WK, #4 DOSE 0 Refills Cyanocobalamin (Cyanocobalamin) 1,000 Mcg/Ml Inj 1000 MCG IM DAILY, #7 DOSE 0 Refills Continued Medications: Levothyroxine Sodium (Synthroid) 112 Mcg Tab 56 MCG PO MWF, TAB take 1/2 tab Levothyroxine Sodium (Levothyroxine Sodium) 125 Mcg Tab 125 MCG PO 4XWK for 90 Days, TAB 3 Refills take tues, thur, sat, sun. Loperamide Hcl (Imodium) 2 Mg Cap 4 MG PO prn, CAP Discharge Exam Patient feeling much better after PRBC transfusion, Hb up to 8.9 today from 6.8 on admission. Vitamin B12 noted to be low at 79. Checked iron studies, they were normal. Discussed with Dr. Ibrahim, he recommended aggressive treatment with Vitamin B12 IM injections for a week then weekly. Called PCP office, they said that they would administer the B12 injections daily, no appointment needed. Review of Systems: Constitutional: No fever, No chills, No sweats, No weight loss, No weakness , No fatigue, No problem reported Eyes: No worsening of vision, No eye pain, No redness, No discharge, No diplopia, No problem reported ENT: No hearing loss, No unusual epistaxis, No nasal symptoms, No sore throat, No tinnitus, No dental problems, No trouble swallowing, No problem reported Respiratory: No cough, No sputum, No wheezing, No shortness of breath, No dyspnea on exertion, No dyspnea at rest, No hemoptysis, No problem reported Cardiovascular: No chest pain, No orthopnea, No PND, No edema, No claudication, No palpitations, No problem reported Abdomen: No pain, No nausea, No vomiting, No diarrhea, No constipation, No GI bleeding, No problem reported Musculoskeletal: No joint pain, No muscle pain, No swelling, No calf pain, No problem reported Genitourinary - Female: No dysuria, No urinary frequency, No urinary urgency , No urinary incontinence, No urinary retention, No hematuria Neurologic: No memory loss, No paralysis, No weakness, No numbness/tingling , No vertigo, No balance problems, No problem reported Psychiatric: No depression symptoms, No anhedonism, No anxiety, No insomnia , No substance abuse, No problem reported Endocrine: No fatigue, No excessive thirst, No excessive urination, No problem reported Hematologic / Lymphatic: No abnormal bleeding/bruising, No clotting problems , No swollen lymph nodes, No night sweats, No problem reported Integumentary: No rash, No itch, No new/changing skin lesions, No color change, No bleeding, No problem reported Physical Exam: General Appearance: WD/WN, no apparent distress Eyes: normal inspection, EOMI, sclerae normal ENT: normal ENT inspection, hearing grossly normal, pharynx normal Neck: supple, no adenopathy, no JVD, trachea midline Respiratory/Chest: chest non-tender, lungs clear, normal breath sounds, no respiratory distress, no accessory muscle use Cardiovascular: regular rate, rhythm, no edema, no gallop, no JVD, no murmur , normal peripheral pulses Abdomen / GI: normal bowel sounds, non tender, soft, no organomegaly Extremities: normal inspection, no calf tenderness, normal capillary refill , no pedal edema, normal range of motion, pelvis stable Neurologic/Psychiatric: 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 Ibrahim, he would recommend Vitamin B12 IM daily x 1 week, then weekly for a month can repeat Vitamin B12 level in the office with Dr. Liz Lee Vitamin B12 1000mcg injections sent to pharmacy, will take them to Dr. Liz Lee's office tomorrow Pancytopenia Lyme IgM screen positive, IgG negative, confirmatory testing negative Erlichiosis and Anaplasmosis testing ordered, pending patient feeling a lot better, denies any fevers, aches, rash seems like the blood transfusion fixed her symptoms replacing the Vitamin B12 should fix her cell lines will follow up on the above serology testing, if positive will call patient and prescribe Doxycycline Hypothyroid: continue home meds Total Time Spent: Greater than 30 minutes This includes examination of the patient, discharge planning, medication reconciliation, and communication with other providers. Discharge Instructions Please refer to the electronic Patient Visit Report (Discharge Instructions) for additional information. Follow-Up Dr. Liz Lee in one week Dr. Ibrahim in one month, can be referred by Dr. Liz Lee Additional Copies To Peña Mohamud M.D.; Lemuel Ibrahim D.O.
[2017-12-22] MEDS ORDERED: LEVOTHYROXINE 125 MCG TAB PO SCH (07:00)
== END 2017-12-21 11:00 | disposition home or self-care (01) | DRG 812 ==
LOC: C.EDB 14:05 → C.2T 16:23 → ENRESERV 16:34
PROVIDERS: ADMIT Family Medicine; ATTEND Internal Medicine
DX: D53.9 Nutritional anemia, unspecified (principal); D61.818 Other pancytopenia; E53.8 Deficiency of other specified B group vitamins; K90.0 Celiac disease; E03.9 Hypothyroidism, unspecified; Z79.899 Other long term (current) drug therapy; Z88.2 Allergy status to sulfonamides; Z91.041 Radiographic dye allergy status; Z83.2 Family history of diseases of the blood and blood-forming organs and certain disorders involving the immune mechanism

== ENCOUNTER → 2017-12-22 | Outpatient (CLI) | payer BC ==
[2017-12-22 14:28] LABS: MEAN CORPUSCULAR HGB CONC 34.3 g/dl (32-36); NUCLEATED RED BLOOD CELL ABS 0.05 K/uL (0-0)
[2017-12-22 14:43] LABS: HEMATOCRIT 26.5 % (37-47); HEMOGLOBIN 9.1 g/dL (12.0-16.0); MEAN CELL VOLUME 102.7 fL (80-100); MEAN CORPUSCULAR HEMOGLOBIN 35.3 pg (25-34); RED CELL DISTRIBUTION WIDTH CV 22.1 % (11.5-14.5); RED CELL DISTRIBUTION WIDTH SD 80.2 fL (36.4-46.3); WHITE BLOOD COUNT 2.28 K/uL (4.8-10.8)
[2017-12-22 15:08] LABS: PLATELET COUNT 52 K/uL (130-400)
== END | disposition home or self-care (01) ==
LOC: C.LABSPEC 13:20
PROVIDERS: ATTEND Internal Medicine
DX: D64.9 Anemia, unspecified (principal); E53.8 Deficiency of other specified B group vitamins

== ENCOUNTER → 2017-12-28 | Outpatient (CLI) | payer BC ==
[2017-12-28 14:42] LABS: BASO % 0.2 %; BASO ABS # 0.01 K/uL (0-0.2); EOS % 11.7 %; EOS ABS # 0.55 K/uL (0-0.5); HEMATOCRIT 33.3 % (37-47); HEMOGLOBIN 10.6 g/dL (12.0-16.0); LYMPH % 31.6 %; LYMPH ABS # 1.49 K/uL (1.2-3.4); MEAN CELL VOLUME 104.7 fL (80-100); MEAN CORPUSCULAR HEMOGLOBIN 33.3 pg (25-34); MEAN CORPUSCULAR HGB CONC 31.8 g/dl (32-36); MEAN PLATELET VOLUME 11.4 fL (7.4-10.4); MONO % 14.2 %; MONO ABS # 0.67 K/uL (0.11-0.59); NEUT % 42.3 %; NEUT ABS # 1.99 K/uL (1.4-6.5); PLATELET COUNT 256 K/uL (130-400); RED CELL DISTRIBUTION WIDTH CV 20.2 % (11.5-14.5); WHITE BLOOD COUNT 4.71 K/uL (4.8-10.8)
== END | disposition home or self-care (01) ==
LOC: C.LABSPEC 13:29
PROVIDERS: ATTEND Internal Medicine
DX: D64.9 Anemia, unspecified (principal); E53.8 Deficiency of other specified B group vitamins